=== PATIENT | male | born 1995 | race Caucasian/White ===

== ENCOUNTER 2017-11-03 09:56 | Emergency (ER) | payer OTHER ==
[~2017-11-03] VITALS: Ht 193 cm; Wt 104.3 kg
[~2017-11-03 09:56] MED LIST: AMOCLA875 PO; Cleocin HCl300 MG PO; LIDO2L TOP; NAPR550 PO; Naprosyn500 MG PO; Norco 5-325 Ta1 EACH PO; QUET100 PO; Triamcinolone A15 GM TOP; Veetids 500500 MG PO
== END 2017-11-03 11:57 | disposition home or self-care (01) ==
LOC: ER 09:56
DX: R07.9 Chest pain, unspecified (principal); R00.2 Palpitations; F17.200 Nicotine dependence, unspecified, uncomplicated
CPT/HCPCS: 36415; 84484; 93005; 93010; 99285-25

== ENCOUNTER 2017-11-30 09:36 | Emergency (ER) | payer OTHER ==
[~2017-11-30] VITALS: Ht 193 cm; Wt 104.3 kg
== END 2017-11-30 12:00 | disposition home or self-care (01) ==
LOC: ER 09:36
DX: J06.9 Acute upper respiratory infection, unspecified (principal); R55 Syncope and collapse; F17.210 Nicotine dependence, cigarettes, uncomplicated
CPT/HCPCS: 82947; 93005; 93010; 99284-25

== ENCOUNTER 2017-12-06 14:02 | Emergency (ER) | payer OTHER ==
[~2017-12-06] VITALS: Ht 193 cm; Wt 104.3 kg
[2017-12-06 15:04] LABS: BASOPHILS ABSOLUTE AUTO 0.01 K/mm3 (0.00-0.23); BASOPHILS PERCENT AUTO 0 % (0-2); EOSINOPHILS PERCENT AUTO 0 % (0-6); Hematocrit 47.8 % (37.0-53.0); Hemoglobin 15.9 g/dL (13.5-17.5); IMMATURE GRAN ABSOLUTE AUTO 0.02 K/mm3 (0.00-0.10); IMMATURE GRAN PERCENT AUTO 0 % (0-1); LYMPHOCYTES ABSOLUTE AUTO 1.29 K/mm3 (0.84-5.20); LYMPHOCYTES PERCENT AUTO 23 % (21-46); MONOCYTES ABSOLUTE AUTO 0.79 K/mm3 (0.16-1.47); MONOCYTES PERCENT AUTO 14 % (4-13); Mean Corpuscular HGB 30.3 pg (26.0-34.0); Mean Corpuscular HGB Conc 33.3 g/dL (31.5-36.5); Mean Corpuscular Volume 91 fL (80-100); Mean Platelet Volume 11.2 fL (9.1-12.4); NEUTROPHILS ABSOLUTE AUTO 3.63 K/mm3 (1.96-9.15); NEUTROPHILS PERCENT AUTO 63 % (41-73); Platelet Count 152 K/mm3 (150-400); RDW Coefficient Variation 12.4 % (11.7-14.2); RDW Standard Deviation 41.9 fL (35.1-46.3); Red Blood Cell Count 5.24 M/mm3 (4.30-5.90); White Blood Cell Count 5.74 K/mm3 (4.00-11.30)
[2017-12-06 15:15] LABS: Alanine Aminotransfer (ALT/SGP 20 U/L (12-78); Albumin, Blood 4.4 g/dL (3.4-5.0); Albumin/Globulin Ratio 1.5 (0.8-1.8); Alk Phos 62 U/L (50-136); Anion Gap 8 mmol/L (6-16); Aspartate Aminotrans (AST/SGOT 21 U/L (12-37); Bilirubin, Total 1.3 mg/dL (0.1-1.0); Blood Urea Nitrogen 11 mg/dL (8-24); Bun/Creatinine Ratio 11.1 (12.0-20.0); CO2, Blood 24 mmol/L (21-32); Calcium, Blood 8.3 mg/dL (8.5-10.1); Chloride, Blood 105 mmol/L (98-108); Creatinine, Blood 0.99 mg/dL (0.60-1.20); Glomerular Filtration Rate >60 (60-); Glucose, Blood 103 mg/dL (70-99); Potassium, Blood 4.3 mmol/L (3.5-5.5); Sodium, Blood 137 mmol/L (136-145); Total Protein, Blood 7.4 g/dL (6.4-8.2)
[2017-12-06 15:24] LABS: Influenza A Negative (NEGATIVE); Influenza B Negative (NEGATIVE)
[2017-12-06 16:37] LABS: Source, Urine Clean Catch
[2017-12-06] MEDS ORDERED: Naprosyn500 MG PO (17:27)
[2017-12-06] MEDS ORDERED: PENVK500 PO (17:27)
[2017-12-06 17:32] LABS: Bilirubin, Urine Neg (Neg); Blood, Urine Neg (Neg); Glucose Qualitative, Urine Neg (Neg); Ketones, Urine 2+ (Neg); Leukocyte Esterase, Urine 1+ (Neg); Nitrite, Urine Neg (Neg); Protein, Urine 2+ (Neg); Specific Gravity, Urine 1.015 (1.003-1.022); Urobilinogen, Urine 2+ (Normal)
[2017-12-06 17:34] LABS: Appearance, Urine Clear (Clear); Color, Urine Yellow (P-Yellow); Red Blood Cells, Urine 0-2 /hpf (0-2); Squamous Epithelial Cells Rare /hpf (Few)
[2017-12-06 17:35] LABS: Bacteria Few /hpf; Mucus Heavy (0-Heavy)
== END 2017-12-06 17:45 | disposition home or self-care (01) ==
LOC: ER 14:02
PROVIDERS: Physician Assistant
DX: J02.9 Acute pharyngitis, unspecified (principal); R50.9 Fever, unspecified; R00.0 Tachycardia, unspecified; F17.210 Nicotine dependence, cigarettes, uncomplicated
CPT/HCPCS: 36415; 71046; 80053; 81001; 83605; 85025; 86308; 87081; 87086; 87430; 87804; 96361; 96374; 99283-25; J1885; J7030

== ENCOUNTER 2018-03-13 14:07 | Emergency (ER) | payer OTHER ==
[~2018-03-13] VITALS: Ht 185.4 cm; Wt 93.0 kg
[~2018-03-13 14:07] MED LIST changes: +PENVK500 PO
[2018-03-13] MEDS ORDERED: Amoxicillin500 MG PO (14:31)
[2018-03-14] MEDS ORDERED: Norco 5-325 Ta1 EACH PO (20:48)
== END 2018-03-13 14:39 | disposition home or self-care (01) ==
LOC: ER 14:07
DX: K08.89 Other specified disorders of teeth and supporting structures (principal); G89.29 Other chronic pain; F17.210 Nicotine dependence, cigarettes, uncomplicated
CPT/HCPCS: 99282

== ENCOUNTER 2018-03-14 20:07 | Emergency (ER) | payer OTHER ==
[~2018-03-14] VITALS: Ht 193 cm; Wt 95.2 kg
[~2018-03-14 20:07] MED LIST changes: +Amoxicillin500 MG PO
[2018-03-14] MEDS ORDERED: Norco 5-325 Ta1 EACH PO (20:48)
== END 2018-03-14 20:55 | disposition home or self-care (01) ==
LOC: ER 20:07
DX: K04.7 Periapical abscess without sinus (principal); K02.9 Dental caries, unspecified; F17.210 Nicotine dependence, cigarettes, uncomplicated
CPT/HCPCS: 99282

== ENCOUNTER 2018-06-21 12:09 | Emergency (ER) | payer OTHER ==
[~2018-06-21] VITALS: Ht 190.5 cm; Wt 95.2 kg
[2018-06-21 13:23] LABS: Source, Urine Clean Catch
[2018-06-21 13:28] LABS: BASOPHILS ABSOLUTE AUTO 0.03 K/mm3 (0.00-0.23); BASOPHILS PERCENT AUTO 1 % (0-2); EOSINOPHILS ABSOLUTE AUTO 0.08 K/mm3 (0.00-0.68); EOSINOPHILS PERCENT AUTO 2 % (0-6); Hematocrit 43.5 % (37.0-53.0); Hemoglobin 14.7 g/dL (13.5-17.5); IMMATURE GRAN ABSOLUTE AUTO 0.01 K/mm3 (0.00-0.10); IMMATURE GRAN PERCENT AUTO 0 % (0-1); LYMPHOCYTES ABSOLUTE AUTO 1.58 K/mm3 (0.84-5.20); LYMPHOCYTES PERCENT AUTO 35 % (21-46); MONOCYTES ABSOLUTE AUTO 0.76 K/mm3 (0.16-1.47); MONOCYTES PERCENT AUTO 17 % (4-13); Mean Corpuscular HGB 29.8 pg (26.0-34.0); Mean Corpuscular HGB Conc 33.8 g/dL (31.5-36.5); Mean Corpuscular Volume 88 fL (80-100); Mean Platelet Volume 10.3 fL (9.1-12.4); NEUTROPHILS PERCENT AUTO 46 % (41-73); Platelet Count 220 K/mm3 (150-400); RDW Coefficient Variation 12.5 % (11.7-14.2); RDW Standard Deviation 39.9 fL (35.1-46.3); Red Blood Cell Count 4.94 M/mm3 (4.30-5.90); White Blood Cell Count 4.56 K/mm3 (4.00-11.30)
[2018-06-21 13:38] LABS: Bilirubin, Urine Neg (Neg); Blood, Urine Neg (Neg); Glucose Qualitative, Urine Neg (Neg); Ketones, Urine Neg (Neg); Leukocyte Esterase, Urine Neg (Neg); Nitrite, Urine Neg (Neg); Protein, Urine Neg (Neg); Specific Gravity, Urine 1.015 (1.003-1.022); Urobilinogen, Urine 2+ (Normal)
[2018-06-21 13:50] LABS: Appearance, Urine Clear (Clear); Color, Urine Yellow (P-Yellow)
[2018-06-21 13:54] LABS: Alanine Aminotransfer (ALT/SGP 16 U/L (12-78); Albumin, Blood 4.6 g/dL (3.4-5.0); Albumin/Globulin Ratio 1.5 (0.8-1.8); Alk Phos 71 U/L (50-136); Anion Gap 4 mmol/L (6-16); Aspartate Aminotrans (AST/SGOT 15 U/L (12-37); Bilirubin, Total 1.8 mg/dL (0.1-1.0); Blood Urea Nitrogen 11 mg/dL (8-24); Bun/Creatinine Ratio 16.2 (12.0-20.0); CO2, Blood 29 mmol/L (21-32); Calcium, Blood 9.2 mg/dL (8.5-10.1); Chloride, Blood 107 mmol/L (98-108); Creatinine, Blood 0.68 mg/dL (0.60-1.20); Glomerular Filtration Rate >60 (60-); Glucose, Blood 59 mg/dL (70-99); Potassium, Blood 4.1 mmol/L (3.5-5.5); Sodium, Blood 140 mmol/L (136-145); Total Protein, Blood 7.6 g/dL (6.4-8.2)
== END 2018-06-21 14:54 | disposition home or self-care (01) ==
LOC: ER 12:09
PROVIDERS: Physician Assistant
DX: R51 Headache (principal); F17.210 Nicotine dependence, cigarettes, uncomplicated
CPT/HCPCS: 80053; 81003; 85025; 93005; 93010; 99284-25

== ENCOUNTER → 2018-07-01 | Outpatient (CLI) | payer OTHER | END | disposition home or self-care (01) | LOC: LAB SHORT 11:24 → LAB EV 11:24 | DX: J02.9 Acute pharyngitis, unspecified (principal) | CPT/HCPCS: 87070 ==

== ENCOUNTER 2018-08-05 19:22 | Emergency (ER) | payer OTHER ==
[~2018-08-05] VITALS: Ht 188 cm; Wt 90.7 kg
== END 2018-08-05 21:20 | disposition home or self-care (01) ==
LOC: ER 19:22
DX: S00.03XA Contusion of scalp, initial encounter (principal); W01.198A Fall on same level from slipping, tripping and stumbling with subsequent striking against other object, initial encounter
CPT/HCPCS: 99283

== ENCOUNTER 2019-01-02 10:36 | Emergency (ER) | payer OTHER ==
[~2019-01-02] VITALS: Ht 193 cm; Wt 95.2 kg
[~2019-01-02 10:36] MED LIST changes: +LORA2 PO
== END 2019-01-02 14:10 | disposition left against medical advice (07) ==
LOC: ER 10:36
DX: R20.2 Paresthesia of skin (principal); R29.898 Other symptoms and signs involving the musculoskeletal system; F17.210 Nicotine dependence, cigarettes, uncomplicated
CPT/HCPCS: 99283

== ENCOUNTER 2019-03-16 11:36 | Emergency (ER) | payer OTHER ==
[~2019-03-16] VITALS: Ht 190.5 cm; Wt 97.5 kg
[2019-03-16] MEDS ORDERED: ALBU90OI INH (14:32)
[2019-03-16] MEDS ORDERED: ONDA4ODT MM (14:32)
[2019-03-16] MEDS ORDERED: [UNRECOGNIZED DRUG - OTHER] PO (14:32)
[2019-03-16] MEDS ORDERED: Sudogest60 MG PO (14:32)
== END 2019-03-16 14:46 | disposition home or self-care (01) ==
LOC: ER 11:36
DX: J11.1 Influenza due to unidentified influenza virus with other respiratory manifestations (principal); F17.210 Nicotine dependence, cigarettes, uncomplicated
CPT/HCPCS: 71046; 99283-25

== ENCOUNTER → 2019-03-22 | Outpatient (CLI) | payer OTHER ==
[~2019-03-22] MED LIST changes: +ALBU90OI INH; +ONDA4ODT MM; +Sudogest60 MG PO; +[UNRECOGNIZED DRUG - OTHER] PO
== END | disposition home or self-care (01) ==
LOC: LAB SHORT 17:42 → LAB 17:42
DX: J02.9 Acute pharyngitis, unspecified (principal)
CPT/HCPCS: 87081

== ENCOUNTER 2019-08-16 11:56 | Emergency (ER) | payer OTHER ==
[~2019-08-16] VITALS: Ht 190.5 cm; Wt 97.5 kg
[2019-08-16 13:22] LABS: BASOPHILS ABSOLUTE AUTO 0.03 K/mm3 (0.00-0.23); BASOPHILS PERCENT AUTO 1 % (0-2); EOSINOPHILS ABSOLUTE AUTO 0.09 K/mm3 (0.00-0.68); EOSINOPHILS PERCENT AUTO 2 % (0-6); Hematocrit 46.5 % (37.0-53.0); Hemoglobin 15.4 g/dL (13.5-17.5); IMMATURE GRAN ABSOLUTE AUTO 0.01 K/mm3 (0.00-0.10); IMMATURE GRAN PERCENT AUTO 0 % (0-1); LYMPHOCYTES ABSOLUTE AUTO 1.66 K/mm3 (0.84-5.20); LYMPHOCYTES PERCENT AUTO 39 % (21-46); MONOCYTES ABSOLUTE AUTO 0.52 K/mm3 (0.16-1.47); MONOCYTES PERCENT AUTO 12 % (4-13); Mean Corpuscular HGB 29.3 pg (26.0-34.0); Mean Corpuscular HGB Conc 33.1 g/dL (31.5-36.5); Mean Corpuscular Volume 88 fL (80-100); Mean Platelet Volume 11.2 fL (9.1-12.4); NEUTROPHILS ABSOLUTE AUTO 1.93 K/mm3 (1.96-9.15); NEUTROPHILS PERCENT AUTO 46 % (41-73); Platelet Count 255 K/mm3 (150-400); RDW Coefficient Variation 12.2 % (11.7-14.2); RDW Standard Deviation 39.7 fL (35.1-46.3); Red Blood Cell Count 5.26 M/mm3 (4.30-5.90); White Blood Cell Count 4.24 K/mm3 (4.00-11.30)
[2019-08-16 13:28] LABS: Anion Gap 5 mmol/L (6-16); Blood Urea Nitrogen 7 mg/dL (8-24); CO2, Blood 22 mmol/L (21-32); Calcium, Blood 8.6 mg/dL (8.5-10.1); Chloride, Blood 112 mmol/L (98-108); Creatinine, Blood 0.64 mg/dL (0.60-1.20); Glomerular Filtration Rate >60 (60-); Glucose, Blood 92 mg/dL (70-99); Potassium, Blood 4.1 mmol/L (3.5-5.5); Sodium, Blood 139 mmol/L (136-145); Troponin I <0.015 ng/mL (0.000-0.040)
== END 2019-08-16 13:19 | disposition left against medical advice (07) ==
LOC: ER 11:56
PROVIDERS: Emergency Medicine
DX: R07.9 Chest pain, unspecified (principal); I10 Essential (primary) hypertension; F17.200 Nicotine dependence, unspecified, uncomplicated
CPT/HCPCS: 36415; 71046; 80048; 84484; 85025; 93005; 93010; 99285-25

== ENCOUNTER 2019-08-23 15:27 | Emergency (ER) | payer OTHER ==
[~2019-08-23] VITALS: Ht 188 cm; Wt 95.2 kg
[2019-08-23 16:16] LABS: BASOPHILS ABSOLUTE AUTO 0.03 K/mm3 (0.00-0.23); BASOPHILS PERCENT AUTO 0 % (0-2); EOSINOPHILS ABSOLUTE AUTO 0.03 K/mm3 (0.00-0.68); EOSINOPHILS PERCENT AUTO 0 % (0-6); Hematocrit 44.6 % (37.0-53.0); Hemoglobin 15.1 g/dL (13.5-17.5); IMMATURE GRAN ABSOLUTE AUTO 0.02 K/mm3 (0.00-0.10); IMMATURE GRAN PERCENT AUTO 0 % (0-1); LYMPHOCYTES ABSOLUTE AUTO 1.06 K/mm3 (0.84-5.20); LYMPHOCYTES PERCENT AUTO 11 % (21-46); MONOCYTES PERCENT AUTO 13 % (4-13); Mean Corpuscular HGB Conc 33.9 g/dL (31.5-36.5); Mean Corpuscular Volume 89 fL (80-100); NEUTROPHILS ABSOLUTE AUTO 7.53 K/mm3 (1.96-9.15); NEUTROPHILS PERCENT AUTO 76 % (41-73); Platelet Count 198 K/mm3 (150-400); RDW Coefficient Variation 12.1 % (11.7-14.2); RDW Standard Deviation 39.1 fL (35.1-46.3); Red Blood Cell Count 5.04 M/mm3 (4.30-5.90); White Blood Cell Count 9.97 K/mm3 (4.00-11.30)
[2019-08-23 16:26] LABS: Alanine Aminotransfer (ALT/SGP 18 U/L (12-78); Albumin, Blood 4.2 g/dL (3.4-5.0); Albumin/Globulin Ratio 1.4 (0.8-1.8); Alk Phos 60 U/L (50-136); Anion Gap 6 mmol/L (6-16); Aspartate Aminotrans (AST/SGOT 16 U/L (12-37); Bilirubin, Total 3.1 mg/dL (0.1-1.0); Blood Urea Nitrogen 10 mg/dL (8-24); Bun/Creatinine Ratio 10.8 (12.0-20.0); CO2, Blood 24 mmol/L (21-32); Calcium, Blood 8.8 mg/dL (8.5-10.1); Chloride, Blood 107 mmol/L (98-108); Creatinine, Blood 0.93 mg/dL (0.60-1.20); Globulin, Blood 2.9 g/dL (2.2-4.0); Glomerular Filtration Rate >60 (60-); Glucose, Blood 94 mg/dL (70-99); Potassium, Blood 4.1 mmol/L (3.5-5.5); Sodium, Blood 137 mmol/L (136-145); Total Protein, Blood 7.1 g/dL (6.4-8.2)
[2019-08-23 16:29] LABS: Source, Urine Clean Catch
[2019-08-23 16:36] LABS: Bilirubin, Urine Neg (Neg); Blood, Urine Neg (Neg); Glucose Qualitative, Urine Neg (Neg); Ketones, Urine 1+ (Neg); Leukocyte Esterase, Urine Neg (Neg); Nitrite, Urine Neg (Neg); Protein, Urine Neg (Neg); Urobilinogen, Urine 2+ (Normal)
[2019-08-23 16:41] LABS: Appearance, Urine Clear (Clear); Color, Urine Amber (P-Yellow)
== END 2019-08-23 17:15 | disposition home or self-care (01) ==
LOC: ER 15:27
PROVIDERS: Emergency Medicine
DX: A08.4 Viral intestinal infection, unspecified (principal); F17.210 Nicotine dependence, cigarettes, uncomplicated
CPT/HCPCS: 80053; 81003; 83690; 85025; 87081; 87430; 96360; 99284-25; J7120

== ENCOUNTER 2020-07-24 21:29 | Emergency (ER) | payer OTHER | END 2020-07-24 22:10 | disposition left against medical advice (07) | LOC: ER 21:29 | DX: Z53.21 Procedure and treatment not carried out due to patient leaving prior to being seen by health care provider (principal) ==

== ENCOUNTER 2020-10-24 06:23 | Emergency (ER) | payer OTHER ==
[~2020-10-24] VITALS: Ht 193 cm; Wt 106.6 kg
== END 2020-10-24 07:21 | disposition home or self-care (01) ==
LOC: ER 06:23
DX: F41.9 Anxiety disorder, unspecified (principal); F32.9 Major depressive disorder, single episode, unspecified
CPT/HCPCS: 99283; A9270